=== PATIENT | female | born 1975 | race Hispanic/Latino ===

== ENCOUNTER → 2023-04-30 | Outpatient (CLI) | payer OTHER ==
[~2023-04-30] MED LIST: PROHANCE 279.3MG/ML 5ML VIAL ONE
== END ==
LOC: M PLAIMG 10:39
PROVIDERS: ATTEND Family Medicine
DX: Z15.01 Genetic susceptibility to malignant neoplasm of breast (principal); Z80.3 Family history of malignant neoplasm of breast
CPT/HCPCS: A9576; C8908

== ENCOUNTER → 2023-11-09 | Outpatient (CLI) | payer OTHER | LOC: EDUNIT# 10-23 10:30 → M WHC 11:50 | PROVIDERS: ATTEND Family Medicine | DX: Z12.31 Encounter for screening mammogram for malignant neoplasm of breast (principal) ==

== ENCOUNTER 2024-01-18 09:02 | Day surgery (SDC) | payer OTHER ==
[~2024-01-18] VITALS: Ht 162.6 cm; Wt 59.4 kg
[~2024-01-18 09:02] MED LIST changes: +MAG100TA PO; +NS 250 ML IV ONE; -PROHANCE 279.3MG/ML 5ML VIAL ONE; +VITA100091 PO; +VITA100093 PO
[2024-01-18] MEDS ORDERED: propofoL 200 MG/20 ML VIAL As Ordered ONE (10:53)
[2024-01-18] MEDS ORDERED: GLYCOPYRROLATE INJ 0.2 MG/ML 2 ML VIAL As Ordered ONE (10:53)
[2024-01-18 11:35] VITALS: O2SAT 97
[2024-01-18 11:43] VITALS: BP 110/79
== END 2024-01-18 11:44 | disposition home or self-care (01) ==
LOC: M OPP 09:02 → MERGE 10:30 → M OPP 11:44
PROVIDERS: ATTEND Internal Medicine Gastroenterology
DX: Z12.11 Encounter for screening for malignant neoplasm of colon (principal); Z12.12 Encounter for screening for malignant neoplasm of rectum; D12.8 Benign neoplasm of rectum; K64.8 Other hemorrhoids; Q43.8 Other specified congenital malformations of intestine; Z88.2 Allergy status to sulfonamides; E78.1 Pure hyperglyceridemia
CPT/HCPCS: 45385; 88305; J1596